=== PATIENT | female | born 1980 | race Caucasian/White ===

== ENCOUNTER 2017-10-02 15:49 | Emergency (ER) | payer OTHER ==
[~2017-10-02] VITALS: Ht 167.6 cm; Wt 134.8 kg
[~2017-10-02 15:49] MED LIST: ALBU90OI INH; ALBU90OI6 INH; ALBU90OI61 INH; ALPR1; AMIT50; AMIT50 PO; AMOX500 PO; AZIT250 PO; Adipex-P37.5 MG; BACL20 PO; CODACE30 PO; CYCL10 PO; Cymbalta20 MG PO; Cymbalta30 MG PO; DIAZ5 PO; DOCU100 PO; DOXY100 PO; DULO60; EXPECTA PRENAT1 EACH PO; FISH1000 PO; FLUC150A PO; GABA300; GABA400; HYDACE10B; HYDACE5 PO; HYDACE5325 PO; HYDROCODONE COUGH; IBUP800; IBUP800 PO; Kristalose20 GM PO; LITH300C; META800 PO; METPRE4DP PO; MULVITMINE PO; NAPR250 PO; NAPR500 PO; NAPR550 PO; Norco 5-325 Ta1 EACH PO; OXYACE5T; OXYACE5T PO; OXYACE7.5T PO; Omeprazole20 M1; PRED20 PO; Percocet 5-3251 EACH PO; RXALBOI INH; RXCODACET PO; RXHYD5325 PO; RXMETA800 PO; RXNAPNA550 PO; RXOXYACE PO; SERT100; SERT100 PO; SERT50; SERT50 PO; Verotin-Gr Cap1 EACH PO
[2017-10-02] MEDS ORDERED: COUGH SYRUP (16:18)
== END 2017-10-02 17:10 | disposition home or self-care (01) ==
LOC: ER 15:49
DX: J11.1 Influenza due to unidentified influenza virus with other respiratory manifestations (principal); Z91.040 Latex allergy status; Z88.0 Allergy status to penicillin; J45.909 Unspecified asthma, uncomplicated; F32.9 Major depressive disorder, single episode, unspecified; F41.9 Anxiety disorder, unspecified
CPT/HCPCS: 94640; 99283

== ENCOUNTER 2018-02-19 17:05 | Emergency (ER) | payer OTHER ==
[~2018-02-19] VITALS: Ht 167.6 cm; Wt 137.0 kg
[~2018-02-19 17:05] MED LIST changes: +COUGH SYRUP
[2018-02-19] MEDS ORDERED: VENL75ER PO (17:16)
[2018-02-19] MEDS ORDERED: Norco 5-325 Ta1 EACH PO (18:02)
[2018-02-19] MEDS ORDERED: IBUP800 PO (18:02)
[2018-02-19] MEDS ORDERED: Baclofen10 MG PO (18:02)
[2018-02-19] MEDS ORDERED: METPRE4DP PO (18:20)
== END 2018-02-19 18:13 | disposition home or self-care (01) ==
LOC: ER 17:05
DX: G89.29 Other chronic pain (principal); M54.5 Low back pain; F32.9 Major depressive disorder, single episode, unspecified; Z91.040 Latex allergy status; Z88.0 Allergy status to penicillin; Z79.899 Other long term (current) drug therapy
CPT/HCPCS: 96372; 99282; J1885

== ENCOUNTER → 2018-08-22 | Outpatient (CLI) | payer OTHER ==
[~2018-08-22] MED LIST changes: +Baclofen10 MG PO; +VENL75ER PO
== END | disposition home or self-care (01) ==
LOC: LAB EV 10:35 → LAB SHORT 10:35 → LAB 10:35
DX: N39.0 Urinary tract infection, site not specified (principal)
CPT/HCPCS: 87086

== ENCOUNTER → 2018-11-06 | Outpatient (CLI) | payer OTHER ==
[2018-11-06 13:16] LABS: U Amphetamine Screen DETECTED; U Barbituate Screen Not Detected; U Benzodiazapine Screen Not Detected; U Buprenorphine Screen Not Detected; U Cannabinoids Screen Not Detected; U Cocaine Screen Not Detected; U Methadone Screen Not Detected; U Methamphetamine Screen Not Detected; U Opiates Screen Not Detected; U Oxycodone Screen Not Detected; U Phencyclidine Screen Not Detected; U Propoxyphene Screen Not Detected
== END ==
LOC: LAB 10:15 → LAB SHORT 10:15
PROVIDERS: Nurse Practitioner Family
DX: E66.9 Obesity, unspecified (principal)

== ENCOUNTER 2018-12-04 03:25 | Emergency (ER) | payer OTHER ==
[~2018-12-04] VITALS: Ht 167.6 cm; Wt 129.3 kg
[2018-12-04] MEDS ORDERED: Adipex-P37.5 MG PO (03:37)
[2018-12-04] MEDS ORDERED: VIVLODEX10 MG PO (03:37)
== END 2018-12-04 04:06 | disposition home or self-care (01) ==
LOC: ER 03:25
DX: K59.00 Constipation, unspecified (principal); Z91.040 Latex allergy status; Z88.0 Allergy status to penicillin; Z79.899 Other long term (current) drug therapy; J45.909 Unspecified asthma, uncomplicated; F32.9 Major depressive disorder, single episode, unspecified; F41.9 Anxiety disorder, unspecified
CPT/HCPCS: 74018; 99283-25

== ENCOUNTER 2019-05-21 08:57 | Emergency (ER) | payer OTHER ==
[~2019-05-21] VITALS: Ht 170.2 cm; Wt 124.7 kg
[~2019-05-21 08:57] MED LIST changes: +Adipex-P37.5 MG PO; +VIVLODEX10 MG PO
[2019-05-21 10:12] LABS: Source, Urine Clean Catch
[2019-05-21 10:16] LABS: BASOPHILS ABSOLUTE AUTO 0.05 K/mm3 (0.00-0.23); BASOPHILS PERCENT AUTO 1 % (0-2); EOSINOPHILS PERCENT AUTO 0 % (0-6); Hematocrit 44.8 % (33.0-51.0); Hemoglobin 14.2 g/dL (11.5-16.0); IMMATURE GRAN ABSOLUTE AUTO 0.05 K/mm3 (0.00-0.10); IMMATURE GRAN PERCENT AUTO 1 % (0-1); LYMPHOCYTES ABSOLUTE AUTO 1.08 K/mm3 (0.84-5.20); LYMPHOCYTES PERCENT AUTO 15 % (21-46); MONOCYTES PERCENT AUTO 5 % (4-13); Mean Corpuscular HGB 27.6 pg (26.0-34.0); Mean Corpuscular HGB Conc 31.7 g/dL (31.5-36.5); Mean Corpuscular Volume 87 fL (80-100); Mean Platelet Volume 9.3 fL (9.1-12.4); NEUTROPHILS ABSOLUTE AUTO 5.89 K/mm3 (1.96-9.15); NEUTROPHILS PERCENT AUTO 79 % (41-73); Platelet Count 268 K/mm3 (150-400); RDW Coefficient Variation 13.6 % (11.7-14.2); RDW Standard Deviation 43.8 fL (35.1-46.3); Red Blood Cell Count 5.14 M/mm3 (3.80-5.20); White Blood Cell Count 7.47 K/mm3 (4.00-11.30)
[2019-05-21 10:17] LABS: Appearance, Urine Hazy (Clear); Bilirubin, Urine Neg (Neg); Blood, Urine 1+ (Neg); Color, Urine Yellow (P-Yellow); Glucose Qualitative, Urine Neg (Neg); Ketones, Urine 1+ (Neg); Leukocyte Esterase, Urine 3+ (Neg); Nitrite, Urine Neg (Neg); Protein, Urine 2+ (Neg); Urobilinogen, Urine NORM (Normal)
[2019-05-21 10:28] LABS: Bacteria Few /hpf; Squamous Epithelial Cells Mod /hpf (Few)
[2019-05-21 10:37] LABS: Alanine Aminotransfer (ALT/SGP 48 U/L (12-78); Albumin, Blood 3.5 g/dL (3.4-5.0); Albumin/Globulin Ratio 0.7 (0.8-1.8); Alk Phos 71 U/L (50-136); Anion Gap 7 mmol/L (6-16); Aspartate Aminotrans (AST/SGOT 46 U/L (12-37); Bilirubin, Total 0.2 mg/dL (0.1-1.0); Blood Urea Nitrogen 9 mg/dL (8-24); Bun/Creatinine Ratio 11.7 (12.0-20.0); CO2, Blood 28 mmol/L (21-32); Calcium, Blood 8.9 mg/dL (8.5-10.1); Chloride, Blood 101 mmol/L (98-108); Creatinine, Blood 0.77 mg/dL (0.40-1.00); Globulin, Blood 4.8 g/dL (2.2-4.0); Glomerular Filtration Rate >60 (60-); Glucose, Blood 106 mg/dL (70-99); Potassium, Blood 3.6 mmol/L (3.5-5.5); Sodium, Blood 136 mmol/L (136-145); Total Protein, Blood 8.3 g/dL (6.4-8.2)
[2019-05-21] MEDS ORDERED: Diflucan100 MG PO (11:01)
[2019-05-21] MEDS ORDERED: CEPH500 PO (11:01)
[2019-05-21] MEDS ORDERED: ONDA4ODT MM (11:01)
== END 2019-05-21 11:12 | disposition home or self-care (01) ==
LOC: ER 08:57
PROVIDERS: Emergency Medicine
DX: J11.1 Influenza due to unidentified influenza virus with other respiratory manifestations (principal); N39.0 Urinary tract infection, site not specified; Z87.01 Personal history of pneumonia (recurrent); Z91.040 Latex allergy status; Z88.0 Allergy status to penicillin
CPT/HCPCS: 36415; 80053; 81001; 81025; 83690; 85025; 87086; 96361; 96374; 96375; 99284-25; J1885; J2405; J7030

== ENCOUNTER 2019-05-24 21:02 | Emergency (ER) | payer OTHER ==
[~2019-05-24] VITALS: Ht 170.2 cm; Wt 122.5 kg
[~2019-05-24 21:02] MED LIST changes: +CEPH500 PO; +Diflucan100 MG PO; +ONDA4ODT MM
[2019-05-24 21:35] LABS: Hematocrit 38.9 % (33.0-51.0); Hemoglobin 12.2 g/dL (11.5-16.0); Mean Corpuscular HGB 27.5 pg (26.0-34.0); Mean Corpuscular HGB Conc 31.4 g/dL (31.5-36.5); Mean Corpuscular Volume 88 fL (80-100); Mean Platelet Volume 9.6 fL (9.1-12.4); Platelet Count 252 K/mm3 (150-400); RDW Coefficient Variation 13.3 % (11.7-14.2); RDW Standard Deviation 43.2 fL (35.1-46.3); Red Blood Cell Count 4.44 M/mm3 (3.80-5.20); White Blood Cell Count 5.68 K/mm3 (4.00-11.30)
[2019-05-24 21:56] LABS: Alanine Aminotransfer (ALT/SGP 49 U/L (12-78); Albumin, Blood 3.2 g/dL (3.4-5.0); Albumin/Globulin Ratio 0.7 (0.8-1.8); Alk Phos 65 U/L (50-136); Anion Gap 7 mmol/L (6-16); Aspartate Aminotrans (AST/SGOT 40 U/L (12-37); Bilirubin, Total 0.1 mg/dL (0.1-1.0); Blood Urea Nitrogen 11 mg/dL (8-24); Bun/Creatinine Ratio 16.5 (12.0-20.0); CO2, Blood 30 mmol/L (21-32); Calcium, Blood 8.6 mg/dL (8.5-10.1); Chloride, Blood 100 mmol/L (98-108); Creatinine, Blood 0.67 mg/dL (0.40-1.00); Globulin, Blood 4.4 g/dL (2.2-4.0); Glomerular Filtration Rate >60 (60-); Glucose, Blood 86 mg/dL (70-99); Sodium, Blood 137 mmol/L (136-145); Total Protein, Blood 7.6 g/dL (6.4-8.2); Troponin I <0.015 ng/mL (0.000-0.040)
[2019-05-24 23:28] LABS: BAND PERCENT MAN 11 % (0-8); BASOPHILS PERCENT MAN 0 % (0-2); EOSINOPHILS PERCENT MAN 0 % (0-6); LYMPHOCYTES ABSOLUTE MAN 2.66 K/mm3 (0.84-5.20); LYMPHOCYTES PERCENT MAN 47 % (21-46); MONOCYTES ABSOLUTE MAN 0.28 K/mm3 (0.16-1.47); MONOCYTES PERCENT MAN 5 % (4-13); NEUTROPHILS ABSOLUTE MAN 2.72 K/mm3 (1.96-9.15); SEG NEUTROPHILS PERCENT MAN 37 % (41-73); TOTAL CELLS COUNTED 100
== END 2019-05-24 23:50 | disposition home or self-care (01) ==
LOC: ER 21:02
PROVIDERS: Emergency Medicine
DX: J10.1 Influenza due to other identified influenza virus with other respiratory manifestations (principal); Z87.01 Personal history of pneumonia (recurrent); Z88.0 Allergy status to penicillin; Z91.040 Latex allergy status
CPT/HCPCS: 36415; 71046; 80053; 84484; 85025; 93005; 93010; 99284-25

== ENCOUNTER → 2019-12-11 | Outpatient (CLI) | payer OTHER ==
[2019-12-13 00:10] LABS: CHLAMYDIA TRACHOMATIS, NAA Negative (Negative); NEISSERIA GONORRHOEAE, NAA Negative (Negative)
== END | disposition home or self-care (01) ==
LOC: LAB 15:00 → LAB SHORT 15:00
PROVIDERS: Obstetrics & Gynecology
DX: Z11.3 Encounter for screening for infections with a predominantly sexual mode of transmission (principal)
CPT/HCPCS: 87491; 87591

== ENCOUNTER → 2020-02-24 | Outpatient (CLI) | payer OTHER ==
[~2020-02-24] MED LIST changes: +ACET325 PO; +ACYC200 PO; +COLACE100 MG PO; +DICL75ER PO; +LIDO5TO TOP; +MELO7.5 PO; +Macrobid 100 M100 MG PO; +Mupirocin22 GM TP; +ONDA4 PO; +SULTRIDS PO; +TRAM50 PO
== END ==
LOC: LAB 15:37 → LAB SHORT 15:37
DX: L03.90 Cellulitis, unspecified (principal)
CPT/HCPCS: 87070; 87075; 87077; 87147; 87186; 87205

== ENCOUNTER 2020-03-01 20:42 | Emergency (ER) | payer OTHER ==
[~2020-03-01] VITALS: Ht 172.7 cm; Wt 130.6 kg
[~2020-03-01 20:42] MED LIST changes: -Mupirocin22 GM TP; -SULTRIDS PO
[2020-03-01] MEDS ORDERED: SULTRIDS PO (21:04)
[2020-03-01 21:29] LABS: BASOPHILS ABSOLUTE AUTO 0.03 K/mm3 (0.00-0.23); BASOPHILS PERCENT AUTO 0 % (0-2); EOSINOPHILS ABSOLUTE AUTO 0.22 K/mm3 (0.00-0.68); EOSINOPHILS PERCENT AUTO 2 % (0-6); Hematocrit 40.7 % (33.0-51.0); Hemoglobin 12.8 g/dL (11.5-16.0); IMMATURE GRAN ABSOLUTE AUTO 0.02 K/mm3 (0.00-0.10); IMMATURE GRAN PERCENT AUTO 0 % (0-1); LYMPHOCYTES ABSOLUTE AUTO 3.14 K/mm3 (0.84-5.20); LYMPHOCYTES PERCENT AUTO 35 % (21-46); MONOCYTES ABSOLUTE AUTO 0.55 K/mm3 (0.16-1.47); MONOCYTES PERCENT AUTO 6 % (4-13); Mean Corpuscular HGB 27.9 pg (26.0-34.0); Mean Corpuscular HGB Conc 31.4 g/dL (31.5-36.5); Mean Corpuscular Volume 89 fL (80-100); Mean Platelet Volume 10.1 fL (9.1-12.4); NEUTROPHILS ABSOLUTE AUTO 5.08 K/mm3 (1.96-9.15); NEUTROPHILS PERCENT AUTO 56 % (41-73); Platelet Count 298 K/mm3 (150-400); RDW Coefficient Variation 12.7 % (11.7-14.2); RDW Standard Deviation 41.4 fL (35.1-46.3); Red Blood Cell Count 4.58 M/mm3 (3.80-5.20); White Blood Cell Count 9.04 K/mm3 (4.00-11.30)
[2020-03-01 21:47] LABS: Alanine Aminotransfer (ALT/SGP 22 U/L (12-78); Albumin, Blood 3.7 g/dL (3.4-5.0); Albumin/Globulin Ratio 0.9 (0.8-1.8); Alk Phos 64 U/L (50-136); Anion Gap 6 mmol/L (6-16); Aspartate Aminotrans (AST/SGOT 17 U/L (12-37); Bilirubin, Total 0.2 mg/dL (0.1-1.0); Blood Urea Nitrogen 17 mg/dL (8-24); Bun/Creatinine Ratio 17.6 (12.0-20.0); CO2, Blood 26 mmol/L (21-32); Calcium, Blood 8.8 mg/dL (8.5-10.1); Chloride, Blood 105 mmol/L (98-108); Creatinine, Blood 0.97 mg/dL (0.40-1.00); Globulin, Blood 4.3 g/dL (2.2-4.0); Glomerular Filtration Rate >60 (60-); Glucose, Blood 90 mg/dL (70-99); Potassium, Blood 3.8 mmol/L (3.5-5.5); Sodium, Blood 137 mmol/L (136-145)
[2020-03-01 22:14] LABS: Source, Urine Clean Catch
[2020-03-01 22:17] LABS: Bilirubin, Urine Neg (Neg); Blood, Urine 4+ (Neg); Glucose Qualitative, Urine Neg (Neg); Ketones, Urine Neg (Neg); Leukocyte Esterase, Urine 3+ (Neg); Nitrite, Urine Neg (Neg); Protein, Urine Neg (Neg); Specific Gravity, Urine 1.025 (1.003-1.022); Urobilinogen, Urine NORM (Normal)
[2020-03-01 22:18] LABS: Appearance, Urine Clear (Clear); Color, Urine Yellow (P-Yellow)
[2020-03-01 22:23] LABS: Bacteria Many /hpf; Squamous Epithelial Cells Mod /hpf (Few); White Blood Cells, Urine 25-50 /hpf (0-5)
[2020-03-01] MEDS ORDERED: Mupirocin22 GM TP (23:43)
[2020-03-01] MEDS ORDERED: Macrobid 100 M100 MG PO (23:43)
== END 2020-03-02 00:11 | disposition home or self-care (01) ==
LOC: ER 20:42
PROVIDERS: Physician Assistant
DX: T81.49XA Infection following a procedure, other surgical site, initial encounter (principal); L03.311 Cellulitis of abdominal wall; N39.0 Urinary tract infection, site not specified; Z91.040 Latex allergy status; Z88.0 Allergy status to penicillin; Z79.899 Other long term (current) drug therapy; F32.9 Major depressive disorder, single episode, unspecified; J45.909 Unspecified asthma, uncomplicated; F41.9 Anxiety disorder, unspecified
CPT/HCPCS: 74177; 80053; 81001; 83690; 85025; 87077; 87086; 87186; 99284-25; Q9967

== ENCOUNTER 2020-10-05 18:49 | Inpatient (IN) | payer OTHER ==
[~2020-10-05] VITALS: Ht 172.7 cm; Wt 139.2 kg
[~2020-10-05 18:49] MED LIST changes: +Mupirocin22 GM TP; +SULTRIDS PO
[2020-10-05 21:01] LABS: BASOPHILS ABSOLUTE AUTO 0.05 K/mm3 (0.00-0.23); BASOPHILS PERCENT AUTO 0 % (0-2); EOSINOPHILS ABSOLUTE AUTO 0.14 K/mm3 (0.00-0.68); EOSINOPHILS PERCENT AUTO 1 % (0-6); Hematocrit 40.9 % (33.0-51.0); Hemoglobin 12.9 g/dL (11.5-16.0); IMMATURE GRAN ABSOLUTE AUTO 0.06 K/mm3 (0.00-0.10); IMMATURE GRAN PERCENT AUTO 0 % (0-1); LYMPHOCYTES PERCENT AUTO 16 % (21-46); MONOCYTES ABSOLUTE AUTO 0.71 K/mm3 (0.16-1.47); MONOCYTES PERCENT AUTO 5 % (4-13); Mean Corpuscular HGB Conc 31.5 g/dL (31.5-36.5); Mean Corpuscular Volume 89 fL (80-100); Mean Platelet Volume 9.6 fL (9.1-12.4); NEUTROPHILS PERCENT AUTO 78 % (41-73); Platelet Count 304 K/mm3 (150-400); RDW Coefficient Variation 12.5 % (11.7-14.2); RDW Standard Deviation 40.7 fL (35.1-46.3); Red Blood Cell Count 4.61 M/mm3 (3.80-5.20); White Blood Cell Count 15.46 K/mm3 (4.00-11.30)
[2020-10-05 21:35] LABS: Alanine Aminotransfer (ALT/SGP 25 U/L (12-78); Albumin, Blood 3.8 g/dL (3.4-5.0); Albumin/Globulin Ratio 0.9 (0.8-1.8); Alk Phos 67 U/L (50-136); Anion Gap 5 mmol/L (6-16); Aspartate Aminotrans (AST/SGOT 14 U/L (12-37); Bilirubin, Total 0.4 mg/dL (0.1-1.0); Blood Urea Nitrogen 8 mg/dL (8-24); Bun/Creatinine Ratio 11.9 (12.0-20.0); CO2, Blood 27 mmol/L (21-32); Calcium, Blood 8.9 mg/dL (8.5-10.1); Chloride, Blood 105 mmol/L (98-108); Creatinine, Blood 0.68 mg/dL (0.40-1.00); Globulin, Blood 4.1 g/dL (2.2-4.0); Glomerular Filtration Rate >60 (60-); Glucose, Blood 80 mg/dL (70-99); Potassium, Blood 3.8 mmol/L (3.5-5.5); Sodium, Blood 137 mmol/L (136-145); Total Protein, Blood 7.9 g/dL (6.4-8.2)
[2020-10-06 01:01] LABS: Source, Urine Clean Catch
[2020-10-06 01:03] LABS: Bilirubin, Urine Neg (Neg); Blood, Urine Neg (Neg); Glucose Qualitative, Urine Neg (Neg); Ketones, Urine 2+ (Neg); Leukocyte Esterase, Urine Neg (Neg); Nitrite, Urine Neg (Neg); Protein, Urine Neg (Neg); Specific Gravity, Urine 1.005 (1.003-1.022); Urobilinogen, Urine NORM (Normal)
[2020-10-06 01:04] LABS: Appearance, Urine Clear (Clear); Color, Urine Yellow (P-Yellow)
--- NOTE | 2020-10-06 09:53 | NUR ---
pt arrived to room 231 from er dept oriented to room npo sched for surg with dr chow pain to abd -01/20
[2020-10-06 12:32] LABS: Influenza A, PCR NEGATIVE (NEGATIVE); Influenza B, PCR NEGATIVE (NEGATIVE); Resp Syncytial Virus, PCR NEGATIVE (NEGATIVE); SARS-Cov-2 (COVID-19) PCR, MMC NEGATIVE (NEGATIVE)
--- NOTE | 2020-10-06 12:38 | NUR ---
pt having severe h/a called dr claudine cordero ot order for po tylenol
--- NOTE | 2020-10-06 13:40 | NUR ---
pt transported to day surg via [facility]
--- NOTE | 2020-10-06 16:10 | NUR ---
pt arrived back to room 231 from pacu s/p lap appy pt is drowsy but awake reports min pain steri strips to abd c/d/i pt given cl to start no nausea hypo bt/s pt shivering stated she is not cold temp 97.0 heat turned up
--- NOTE | 2020-10-06 18:29 | NUR ---
PT MARY DINNER NO NAUSEA
--- NOTE | 2020-10-07 07:17 | NUR ---
POD 1 S/P LAP APPY. PT VSS T/O NIGHT, STERI STRIPS CDI. PT MARY REG PO, NO N/V, REP +FLATUS. PT IS VOIDING URINE W/O DIFFICULTY. PAIN MGD PER EMAR W/REP RELIEF. PT UP INDEP IN ROOM. IVF AND ABX CONT PER ORDERS. PLAN TO D/C HOME TODAY.
[2020-10-07] MEDS ORDERED: AMOCLA875 PO (10:10)
[2020-10-07] MEDS ORDERED: OXYC5 PO (10:10)
--- NOTE | 2020-10-07 12:36 | NUR ---
DISCHARGE SUMMARY PT A/O X4; PLEASANT AND COOPERATIVE WITH CARE. POD #1 FOR LAP APPY. 3 INCISION SITES ON ABD COVERED WITH STERI STRIPS. SITES C/D/I AND MINIMAL BRUISING NOTED. MEDICATED FOR PAIN #1 THIS SHIFT. IV DC'D WNL. PT PICKED UP BY FRIEND AND DC'D HOME.
[2020-12-23] MEDS ORDERED: MOBIC15 MG PO (14:51)
[2020-12-23] MEDS ORDERED: TRAM50 PO (14:51)
[2020-12-23] MEDS ORDERED: ALBU90OI INH (14:51)
== END 2020-10-07 12:25 | disposition home or self-care (01) | DRG 343 ==
LOC: ER 18:49 → SURS 10-06 03:46 → ERHOLD 10-06 03:46 → SURS 10-06 09:50
PROVIDERS: Physician Assistant; Surgery; ADMIT Surgery
PROC: 0DTJ4ZZ Resection of Appendix, Percutaneous Endoscopic Approach (ICD-10-PCS; principal; 2020-10-06 14:00)
DX: K35.80 Unspecified acute appendicitis (principal); Z20.822 Contact with and (suspected) exposure to COVID-19
CPT/HCPCS: 0241U; 36415; 74177; 80053; 81003; 85025; 88304; 96374; 96375; 96376; 99285; A9270; J0330; J1100; J1170; J1885; J2250; J2270; J2405; J2543; J2704; J3010; J7030; J7120; Q9967

== ENCOUNTER 2020-12-18 22:50 | Emergency (ER) | payer OTHER ==
[~2020-12-18] VITALS: Ht 172.7 cm; Wt 141.1 kg
[~2020-12-18 22:50] MED LIST changes: +AMOCLA875 PO; +OXYC5 PO
[2020-12-19 01:04] LABS: BASOPHILS ABSOLUTE AUTO 0.04 K/mm3 (0.00-0.23); BASOPHILS PERCENT AUTO 0 % (0-2); EOSINOPHILS ABSOLUTE AUTO 0.38 K/mm3 (0.00-0.68); EOSINOPHILS PERCENT AUTO 4 % (0-6); Hematocrit 38.6 % (33.0-51.0); Hemoglobin 12.2 g/dL (11.5-16.0); IMMATURE GRAN ABSOLUTE AUTO 0.02 K/mm3 (0.00-0.10); IMMATURE GRAN PERCENT AUTO 0 % (0-1); LYMPHOCYTES PERCENT AUTO 24 % (21-46); MONOCYTES ABSOLUTE AUTO 0.67 K/mm3 (0.16-1.47); MONOCYTES PERCENT AUTO 7 % (4-13); Mean Corpuscular HGB Conc 31.6 g/dL (31.5-36.5); Mean Corpuscular Volume 89 fL (80-100); Mean Platelet Volume 9.6 fL (9.1-12.4); NEUTROPHILS ABSOLUTE AUTO 6.07 K/mm3 (1.96-9.15); NEUTROPHILS PERCENT AUTO 65 % (41-73); Platelet Count 303 K/mm3 (150-400); RDW Coefficient Variation 12.5 % (11.7-14.2); RDW Standard Deviation 41.2 fL (35.1-46.3); Red Blood Cell Count 4.35 M/mm3 (3.80-5.20); White Blood Cell Count 9.38 K/mm3 (4.00-11.30)
[2020-12-19 01:21] LABS: Alanine Aminotransfer (ALT/SGP 50 U/L (12-78); Albumin, Blood 3.4 g/dL (3.4-5.0); Albumin/Globulin Ratio 0.8 (0.8-1.8); Alk Phos 69 U/L (50-136); Anion Gap 4 mmol/L (6-16); Aspartate Aminotrans (AST/SGOT 22 U/L (12-37); Bilirubin, Total 0.3 mg/dL (0.1-1.0); Blood Urea Nitrogen 16 mg/dL (8-24); Bun/Creatinine Ratio 21.1 (12.0-20.0); CO2, Blood 29 mmol/L (21-32); Calcium, Blood 8.8 mg/dL (8.5-10.1); Chloride, Blood 103 mmol/L (98-108); Creatinine, Blood 0.76 mg/dL (0.40-1.00); Glomerular Filtration Rate >60 (60-); Glucose, Blood 98 mg/dL (70-99); Potassium, Blood 3.7 mmol/L (3.5-5.5); Sodium, Blood 136 mmol/L (136-145); Total Protein, Blood 7.4 g/dL (6.4-8.2)
[2020-12-19 01:27] LABS: SARS-Cov-2 (COVID-19) PCR, MMC NEGATIVE (NEGATIVE)
[2020-12-19] MEDS ORDERED: GUAI600T33 PO (01:59)
[2020-12-19] MEDS ORDERED: BENZ100A PO (01:59)
[2020-12-23] MEDS ORDERED: ALBU90OI INH (14:51)
[2020-12-23] MEDS ORDERED: MOBIC15 MG PO (14:51)
[2020-12-23] MEDS ORDERED: TRAM50 PO (14:51)
== END 2020-12-19 02:17 | disposition home or self-care (01) ==
LOC: ER 22:50
PROVIDERS: Physician Assistant
DX: B34.9 Viral infection, unspecified (principal); Z20.822 Contact with and (suspected) exposure to COVID-19; Z91.040 Latex allergy status; Z88.0 Allergy status to penicillin
CPT/HCPCS: 36415; 71046; 80053; 85025; 86308; 94640; 94664; 99283-25; A9270; U0004

== ENCOUNTER 2020-12-30 10:42 | Day surgery (SDC) | payer OTHER ==
[~2020-12-30] VITALS: Ht 170.2 cm; Wt 138.6 kg
[~2020-12-30 10:42] MED LIST changes: +BENZ100A PO; +GUAI600T33 PO; +MOBIC15 MG PO
--- NOTE | 2020-12-30 12:31 | NUR ---
12/30/20 1231 Carol Ortez UNABLE TO REACH CECUM DO TO POOR PREP. DR. LILLY WAS ABLE TO REACH THE PROXIMAL TRANSVERSE.
== END 2020-12-30 13:09 | disposition home or self-care (01) ==
LOC: ORSCSDS 10:42
PROVIDERS: Internal Medicine Gastroenterology
PROC: 0DB58ZX Excision of Esophagus, Via Natural or Artificial Opening Endoscopic, Diagnostic (ICD-10-PCS; principal; 2020-12-30 12:00)
PROC: 0DB78ZX Excision of Stomach, Pylorus, Via Natural or Artificial Opening Endoscopic, Diagnostic (ICD-10-PCS; principal; 2020-12-30 12:00)
PROC: 0D757ZZ Dilation of Esophagus, Via Natural or Artificial Opening (ICD-10-PCS; principal; 2020-12-30 12:00)
PROC: 0DBN8ZX Excision of Sigmoid Colon, Via Natural or Artificial Opening Endoscopic, Diagnostic (ICD-10-PCS; principal; 2020-12-30 12:00)
DX: R13.10 Dysphagia, unspecified (principal); K21.9 Gastro-esophageal reflux disease without esophagitis; R15.0 Incomplete defecation; Z80.0 Family history of malignant neoplasm of digestive organs; K31.7 Polyp of stomach and duodenum; K63.5 Polyp of colon; K64.8 Other hemorrhoids; K64.4 Residual hemorrhoidal skin tags; K22.2 Esophageal obstruction; J44.9 Chronic obstructive pulmonary disease, unspecified; G47.33 Obstructive sleep apnea (adult) (pediatric); E66.01 Morbid (severe) obesity due to excess calories; Z68.42 Body mass index [BMI] 45.0-49.9, adult; Z79.899 Other long term (current) drug therapy
CPT/HCPCS: 88305; 88312; A9270; J2001; J2704; J7120

== ENCOUNTER 2020-12-30 18:00 | Emergency (ER) | payer OTHER ==
[~2020-12-30] VITALS: Ht 170.2 cm; Wt 138.8 kg
== END 2020-12-30 22:23 | disposition home or self-care (01) ==
LOC: ER 18:00
DX: K22.4 Dyskinesia of esophagus (principal); Z91.040 Latex allergy status; Z88.0 Allergy status to penicillin
CPT/HCPCS: 71260; 99283-25; A9270; Q9967

== ENCOUNTER 2021-03-22 08:40 | Day surgery (SDC) | payer OTHER ==
[~2021-03-22] VITALS: Ht 170.2 cm; Wt 139.1 kg
[~2021-03-22 08:40] MED LIST changes: +VOLTAREN ARTHRI20 GM TOP
== END 2021-03-22 10:46 | disposition home or self-care (01) ==
LOC: ORSCSDS 08:40
PROVIDERS: Internal Medicine Gastroenterology
PROC: 0DJD8ZZ Inspection of Lower Intestinal Tract, Via Natural or Artificial Opening Endoscopic (ICD-10-PCS; principal; 2021-03-22 10:00)
DX: Z12.11 Encounter for screening for malignant neoplasm of colon (principal); K57.30 Diverticulosis of large intestine without perforation or abscess without bleeding; K64.4 Residual hemorrhoidal skin tags; K64.8 Other hemorrhoids; J44.9 Chronic obstructive pulmonary disease, unspecified; G47.33 Obstructive sleep apnea (adult) (pediatric); E66.01 Morbid (severe) obesity due to excess calories; Z68.42 Body mass index [BMI] 45.0-49.9, adult; M79.7 Fibromyalgia; Z80.0 Family history of malignant neoplasm of digestive organs; Z79.899 Other long term (current) drug therapy
CPT/HCPCS: A9270; J2704; J7120

== ENCOUNTER 2022-11-20 11:19 | Day surgery (SDC) | payer OTHER ==
[~2022-11-20] VITALS: Ht 172.7 cm; Wt 131.2 kg
[~2022-11-20 11:19] MED LIST changes: +LIDO700A20 TOP
[2022-11-20] MEDS ORDERED: OMEP20ER PO (11:35)
--- NOTE | 2022-11-20 12:13 | NUR ---
11/20/22 1213 CARLITOS RIVERA SMALL RED SORE AT BASE OF 2ND TOE/ SURGEON NOTIFIED
--- NOTE | 2022-11-20 13:12 | NUR ---
11/20/22 1312 Ara Barbosa ROPIVACAINE 0.5% 30 MLS MIXED & VERIFIED W/ EPI 0.15 ML PER ORDER TO MAKE ROPIVACAINE 0.5% 1:200,000 FOR INJECTION AT OPSITE BY DR SHARPE. 30 MLS INJECTED.
== END 2022-11-20 15:55 | disposition home or self-care (01) ==
LOC: ORSCSDS 11:19
PROVIDERS: Podiatrist Foot & Ankle Surgery
PROC: 0YQN0ZZ Repair Left Foot, Open Approach (ICD-10-PCS; principal; 2022-11-20 12:30)
DX: M93.272 Osteochondritis dissecans, left ankle and joints of left foot (principal); M25.572 Pain in left ankle and joints of left foot; G47.33 Obstructive sleep apnea (adult) (pediatric); K21.9 Gastro-esophageal reflux disease without esophagitis; E66.01 Morbid (severe) obesity due to excess calories; Z68.41 Body mass index [BMI] 40.0-44.9, adult; Z79.899 Other long term (current) drug therapy; I25.2 Old myocardial infarction
CPT/HCPCS: A9270; C1713; C1762; J0171; J1100; J1885; J2250; J2405; J2704; J2795; J3010

== ENCOUNTER 2023-11-16 07:42 | Day surgery (SDC) | payer OTHER ==
[~2023-11-16] VITALS: Ht 172.7 cm; Wt 123.8 kg
[~2023-11-16 07:42] MED LIST changes: +ALBU90OI; +Adipex-P37.5 M1 PO; +BACL10 PO; +DULO60 PO; +OMEP20ER PO; +Prednisone50 MG PO; +Robaxin750 MG PO; +Ropivacaine 0.5% HCl/Pf 5 MG/ML 20ML VIAL ONE; +TRAM50
[2023-11-16] MEDS ORDERED: Clindamycin 900mg in D5W 50ML 50 ML IV ONE (08:00)
[2023-11-16] MEDS ORDERED: Lactated Ringer's 1,000 ML IV ONE (08:06)
[2023-11-16] MEDS ORDERED: IBUP800 PO (08:08)
[2023-11-16] MEDS ORDERED: FentaNYL Citrate 50 MCG/ML 2 ML Injection ONE (09:00)
[2023-11-16] MEDS ORDERED: propofoL 20 ML IV ONE (09:00)
[2023-11-16] MEDS ORDERED: Dexamethasone Sod Phos 10 MG/ML 1ML VIAL ONE (09:18)
[2023-11-16] MEDS ORDERED: Ondansetron HCl 2 MG / ML 2ML Vial ONE (09:18)
[2023-11-16 09:48] VITALS: BP 126/75
[2023-11-16] MEDS ORDERED: OxyCODONE 5 mg/Acetamin 325 mg TABLET ONE (10:04)
== END 2023-11-16 10:28 | disposition home or self-care (01) ==
LOC: ORSCSDS 07:42
PROVIDERS: Podiatrist Foot & Ankle Surgery
PROC: 0YPB0YZ Removal of Other Device from Left Lower Extremity, Open Approach (ICD-10-PCS; principal; 2023-11-16 09:00)
DX: T84.84XA Pain due to internal orthopedic prosthetic devices, implants and grafts, initial encounter (principal); G47.33 Obstructive sleep apnea (adult) (pediatric); K21.9 Gastro-esophageal reflux disease without esophagitis; F43.10 Post-traumatic stress disorder, unspecified; F32.A Depression, unspecified; F41.9 Anxiety disorder, unspecified; E66.9 Obesity, unspecified; Z68.41 Body mass index [BMI] 40.0-44.9, adult; Z79.899 Other long term (current) drug therapy
CPT/HCPCS: A9270; J1100; J2405; J2704; J2795; J3010

== ENCOUNTER 2024-06-17 17:50 | Emergency (ER) | payer OTHER ==
[~2024-06-17] VITALS: Ht 170.2 cm; Wt 124.7 kg
[~2024-06-17 17:50] MED LIST changes: -Ropivacaine 0.5% HCl/Pf 5 MG/ML 20ML VIAL ONE
[2024-06-17 18:11] VITALS: BP 154/99
[2024-06-17] MEDS ORDERED: OxyCODONE HCL 5 MG TAB PO ONE (18:35)
[2024-06-17] MEDS ORDERED: Lidocaine 4% 1 Patch TOP ONE (18:40)
[2024-06-17] MEDS ORDERED: Ketorolac Tromethamine 15mg Vial IM ONE (18:40)
[2024-06-17] MEDS ORDERED: Ondansetron 4 MG SoluTab SL ONE (18:40)
[2024-06-17] MEDS ORDERED: Robaxin750 MG PO (19:15)
[2024-06-17] MEDS ORDERED: LIDO700A20 TOP (19:15)
== END 2024-06-17 19:40 | disposition home or self-care (01) ==
LOC: ER 17:50
DX: M54.50 Low back pain, unspecified (principal); G89.29 Other chronic pain; J45.909 Unspecified asthma, uncomplicated; Z88.0 Allergy status to penicillin; Z88.8 Allergy status to other drugs, medicaments and biological substances; Z91.040 Latex allergy status; Z79.899 Other long term (current) drug therapy
CPT/HCPCS: 72100; 96372; 99283-25; A9270; J1885

== ENCOUNTER → 2024-09-24 | Outpatient (CLI) | payer OTHER ==
[2024-09-24 13:29] LABS: Bacteria Not Seen /hpf; Red Blood Cells, Urine Not Seen /hpf (0-2); Source, Urine Clean Catch; Squamous Epithelial Cells Not Seen /hpf (Few)
[2024-09-24 13:34] LABS: White Blood Cells, Urine Not Seen /hpf (0-5)
== END | disposition home or self-care (01) ==
LOC: LAB 13:26 → LAB SHORT 13:26
PROVIDERS: Family Medicine
DX: R30.0 Dysuria (principal)
CPT/HCPCS: 81015

== ENCOUNTER → 2024-09-25 | Outpatient (CLI) | payer OTHER ==
[2024-09-25 16:06] LABS: Candida Group, PCR NOT DETECTED (NOT DETECT)
[2024-09-25 16:07] LABS: Bacterial Vaginosis PCR Positive (NEGATIVE); Candida glabrata-krusei, PCR DETECTED (NOT DETECT)
== END ==
LOC: LAB 13:59 → LAB SHORT 13:59
PROVIDERS: Physician Assistant
DX: R30.0 Dysuria (principal)
CPT/HCPCS: 81515